=== PATIENT | female | born 1960 | race Caucasian/White ===

== ENCOUNTER → 2024-01-13 13:23 | Outpatient (REF) | payer OTHER, SELFPAY | LOC: WDC 13:23 | PROVIDERS: ATTENDING PHYSICIAN Nurse Practitioner Family; FAMILY PHYSICIAN Family Medicine | DX: N64.4 Mastodynia (principal) | CPT/HCPCS: 76642; 77062; 77066 ==

== ENCOUNTER 2025-07-28 18:58 | Emergency (ER) | payer OTHER, SELFPAY ==
[2025-07-28 19:00] VITALS: BP 166/96
[2025-07-28 19:20] LABS: Hematocrit 42.6 % (37.0-47.0); Hemoglobin 14.5 g/dL (12.0-16.0); Mean Corp Hgb Conc. 34.0 g/dL (33.0-37.0); Mean Corpuscular Volume 93.6 fL (81.0-99.0); Nucleated Red Blood Cells % 0 %; Platelet Count 208 10^3/uL (130-400); Red Cell Dist. Width 12.1 % (11.5-14.5)
[2025-07-28 19:42] LABS: COVID-19 Antigen Negative (Negative)
[2025-07-28 19:55] LABS: ALT (SGPT) 32 U/L (0-35); AST (SGOT) 36 U/L (14-36); Albumin 4.6 g/dl (3.5-5.0); Alkaline Phosphatase 96 U/L (38-126); Blood Urea Nitrogen 14 mg/dl (7-17); Calcium 10.7 mg/dl (8.4-10.2); Carbon Dioxide 27 mmol/L (22-30); Glucose 113 mg/dl (70-99); Total Protein 7.2 g/dl (6.3-8.2); eGFR > 60.00
[2025-07-28 20:07] LABS: Chloride 105 mmol/L (98-107); Potassium 4.7 mmol/L (3.5-5.1); Sodium 138 mmol/L (135-145)
[2025-07-28 21:20] VITALS: BP 138/76
[2025-07-28 21:26] VITALS: BMI 25.3
--- NOTE | 2025-07-28 21:27 | ED.GENMED ---
History of Present Illness
General
Chief Complaint: Breathing Problem
Time Seen by Provider: 07/28/25 21:18
History of Present Illness
History of Present Illness:
65-year-old female presents to the emergency department for evaluation of chest discomfort associated with a dry cough for the past 4 to 5 days. She states initially she felt as though her symptoms were improving before worsening again today. She
describes a burning sensation in the central chest with deep breathing. No fevers or sweats. No ill contacts at home. Cough is generally dry and nonproductive. No leg swelling or rashes. Non-smoker no history of lung disease.
Past History
Past History
ED Past Medical History: Other
Social History
Tobacco: Non-smoker
Alcohol: None
Drug: None
Personal:
Living: with family
Family History
Family History: Unable to obtain
Review of Systems
Review of Systems
Allergies reviewed?: Yes
All Other Systems: ROS reviewed and negative except as documented in HPI and ROS
Phy Exam
Physical Exam
Physical Exam:
GEN: Well appearing, NAD, WDWN
HEENT: Oral mucosa moist, no scleral icterus
Cardiac: Regular rate and rhythm, no murmurs
Lung: No respiratory distress, no tachypnea, lungs clear to auscultation bilaterally
MSK: No gross deformity or injuries
Skin: Good color, no pallor or jaundice, no rashes
Neuro: AO x3, moves all extremities freely
Psych: Calm, cooperative
Scores
Heart Failure Risk
Heart Failure Risk Score: Not Applicable
Course
Orders/Labs/Results
Orders:
Orders
07/28/25 19:02
EKG [Electrocardiogram (*1)] Urgent
Reason for Study: Shortness of Breath
EKG- Treatment ONCE
Chest [CR Chest - 2 Views ] Urgent
Comment:
Reason For Exam: cough
07/28/25 19:14
COVID-19 Antigen Urgent
Source: Nasal Swab
Complete Blood Count/With Diff Urgent
Comprehensive Metabolic Panel Urgent
Influenza A+B Rapid Molecular Urgent
NATHANIEL Source: Nasal Swab
Specimen Description:
07/28/25 21:26
Albuterol Nebs [Ventolin Nebules] 2.5 mg INH R NOW STA
07/28/25 22:40
Prednisone [Deltasone] 40 mg PO NOW STA
Abnormal Lab Results
07/28/25
19:14
MCH 31.9 H pg
(27.0-31.0)
Absolute Monos (auto) 1.0 H 10^3/uL
(0.1-0.6)
Monocytes % 13.1 H %
(1.7-9.3)
Glucose 113 H mg/dl
(70-99)
Calcium 10.7 H mg/dl
(8.4-10.2)
07/28/25 19:14
07/28/25 19:14
Vital Signs
Initial and Last Documented VS:
Initial Vital Signs
Temp Pulse Resp BP Pulse Ox
98.3 F 90 18 166/96 98
07/28/25 19:00 07/28/25 19:00 07/28/25 19:00 07/28/25 19:00 07/28/25 19:00
Last Documented Vital Signs
Temp Pulse Resp BP Pulse Ox
98.3 F 75 18 138/76 96
07/28/25 19:00 07/28/25 21:30 07/28/25 21:30 07/28/25 22:51 07/28/25 21:30
MDM/Problems Addressed
MDM/Problems Addressed:
Patient is overall well-appearing with no signs of respiratory distress. Lungs clear by auscultation and by chest x-ray. Nebulizer treatment given as a trial for supportive relief however this provided no benefit. Most likely a self-limited
bronchitis, will trial a course of corticosteroids for inflammatory benefit. No indication for antibiotics. Supportive care discussed
Comment
Comment:
EKG independently interpreted by me shows normal sinus rhythm at a rate of [address] changes concerning for ischemia, QTc of 429
*Pulse Oximetry
SaO2: 94
Oxygen Mode of Delivery: Room air
Patient hypoxic: no
*Critical Care Note
Total Time (30-74mins, 75-104mins- exclusive of procedures): Not Applicable
ED Attending Note
-
Portions of this chart may have been created with voice recognition software.� Occasional wrong word or��sound alike� substitutions may have occurred due to the inherent limitations of voice recognition software.
Discharge Plan
Departure
Patient Disposition: Home (Routine Discharge)
Date of Disposition: 07/28/25
Time of Disposition: 22:41
Patient with high blood pressure during this ER visit?: No
Discharge Problem:
Acute bronchitis
Instructions: Acute Bronchitis, Adult (DC)
Prescriptions:
New
methylprednisolone [Medrol (Patricio)] 4 mg tablets,dose pack
See Rx Instructions .ROUTE .COMPLEX Qty: 21 0RF
Rx Instructions:
orally per package directions
No Action
sertraline 25 mg tablet
25 mg PO DAILY@1200
atorvastatin 10 mg tablet
10 mg PO QPM
metoprolol tartrate 25 mg tablet
25 mg PO BID
multivitamin Tablet
1 tab PO DAILY
cetirizine 10 mg Tablet
10 mg PO DAILY
Bioflex [id number] mg Tablet
1 tab PO DAILY
guaifenesin 600 mg Tablet Extended Release 12hr
600 mg PO Q12 7 Days Qty: 14 0RF
Paxlovid 300 mg (150 mg x 2)-100 mg tablets,dose pack
See Rx Instructions .ROUTE .COMPLEX Qty: 30 0RF
Rx Instructions:
take TWO 150 mg tablets of nirmatrelvir with ONE 100 mg tablet of ritonavir twice daily for 4 days
dexamethasone 6 mg tablet
6 mg PO Q24H Qty: 9 0RF
Referrals:
Kristen Gore MD [Family Provider, Family Practice]
Interventions
Interventions:
*Risk Screen - Suicide Last Done: 07/28/25 19:00
*General Assessment Last Done: 07/28/25 19:00
*Neglect/Abuse Screening Last Done: 07/28/25 19:00
*ED- Fall Risk Assessment Last Done: 07/28/25 19:00
*ED COVID-19 Vaccine History Last Done: 07/28/25 19:00
ED- Cardiac Assessment Last Done: 07/28/25 21:23
ED- Pulmonary Assessment Last Done: 07/28/25 21:23
Discharge Date and Time
Print Language: SWEDISH
[2025-07-28] MEDS: VENTOLIN NEBULES 2.5 MG INH (21:38)
[2025-07-28] MEDS: DELTASONE 40 MG PO (22:48)
[2025-07-28 22:51] VITALS: BP 138/76
== END 2025-07-28 23:09 | disposition home or self-care (01) ==
LOC: EMR 18:58
PROVIDERS: EMERGENCY PHYSICIAN Emergency Medicine; FAMILY PHYSICIAN Family Medicine
DX: J20.9 Acute bronchitis, unspecified (principal)
CPT/HCPCS: 99283; 71046; 80053; 85025; 87502; 87811; 93005